=== PATIENT | male | born 1970 | race Caucasian/White ===

== ENCOUNTER 2024-11-24 01:17 | Day surgery (SDC) | payer OTHER, SELFPAY ==
[2024-11-10 15:41] VITALS: BMI 36.4
--- OUTSIDE RECORDS SUMMARY | 2024-11-24 01:20 | XMS_ITS | Referral Summary ---
Author Organization [facility] Address [address] [place] [address] Care Team Providers Care Computer Laboratory Technician Name Role Phone Rad Robles MD Primary Care Provider [phone] Encounters Date Type Department Care Team Description 11/20/2024 1:00 PM CENTRAL OFFICE MECHANIC Office Visit [facility] Neuro Sleep [address] [place] [address] 6th [address] [place] [address] Sergey Duffy PA CATHERINE (obstructive sleep apnea) (Primary Dx); Class 2 obesity due to excess calories with body mass index (BMI) of 36.0 to 36.9 in adult, unspecified whether serious comorbidity present 11/18/2024 4:30 PM CENTRAL OFFICE MECHANIC Telemedicine [facility] [address] [place] [address] [place] [address] Vaibhav Carlos MD Schizophrenia, unspecified type (HCC) (Primary Dx); Generalized anxiety disorder 10/24/2024 8:45 AM CENTRAL OFFICE MECHANIC Office Visit [facility] Cardiology [address] [facility] Medicine 8th [place] [address] [place] [address] Jojo Valverde MD PVC (premature ventricular contraction) (Primary Dx) from Last 3 Months Allergies No known active allergies Medications cholecalciferol (VITAMIN D-3) 5,000 unit tablet Take 1 tablet (5,000 Units total) by mouth daily Active multivitamin with minerals tablet Take 1 tablet by mouth daily Active EPINEPHrine 0.3 mg/0.3 mL auto-injection syringeIndicati ons:Anaphylaxis Inject 0.3 mL (0.3 mg total) into the muscle as instructed as needed for anaphylaxis Call 911 after use. 2 Syringe 9 Active hydrOXYzine (ATARAX) 25 mg tabletIndicatio ns:anxiety Take 1 tablet (25 mg total) by mouth every 8 (eight) hours as needed for anxiety 40 tablet 2 3 Active Additional Information Patient not taking.Reported on 11/20/2024 gemfibroziL (LOPID) 600 mg tablet TAKE 1 TABLET TWICE A DAY 180 tablet 3 4 Active OLANZapine (ZyPREXA) 10 mg tablet TAKE 1 TABLET NIGHTLY 30 tablet 11 4 Active metoprolol XL (TOPROL-XL) 25 mg extended release tablet TAKE 1 TABLET DAILY AT 10:00 A.M. 90 tablet 3 5 Active Active Problems Problem Noted Date Diagnosed Date PVC (premature ventricular contraction) 10/31/19 24 Generalized anxiety disorder 08/28/2023 CATHERINE (obstructive sleep apnea) 07/24/2023 Hyperlipidemia 12/05/2021 Assessment & Plan (12/05/2021 8:55 AM CENTRAL OFFICE MECHANIC): Reviewed, at goal on gemfibrozil Routine general medical exam ination at a health care facility 12/05/2021 Assessment & Plan (12/05/2021 9:04 AM CENTRAL OFFICE MECHANIC): Needs Shingrix and Tdap vaccines Labs Current on colonoscopy 2028 Goal of 150 min/weekly of moderate activity Tinea corporis 12/05/2021 Assessment & Plan (12/05/2021 9:15 AM CENTRAL OFFICE MECHANIC): Topical antifungal BID for 2-3 days beyond clearance, use blow dryer to dry area after bathing Hemorrhoids 08/12/2021 Assessment & Plan (08/12/2021 8:25 AM CDT): OTC tucks pads, will attempt to send Analpram HC Daily, soft BM's If not improving to call for repeat colonoscopy History of colon polyps 12/02/2020 Overview (12/02/2020): Follow up colonoscopy in 2023 Family history of prostate cancer 12/02/2020 Assessment & Plan (12/02/2020 8:58 AM CENTRAL OFFICE MECHANIC): Check psa Schizophrenia 07/12/2017 Immunizations Immunization Administration Dates Next Due Influenza, Quadrivalent, Alea l Culture-based MDCK, Preservative Free, Antibiotic Free, Intramuscular 07/13/2023 Influenza, Quadrivalent, Spl it, Preservative Free, Intramuscular 07/07/2022 Influenza, Trivalent, IM (MDV) 07/15/2021 Pfizer SARS-CoV-2 Monovalent Vaccination (12+ Yrs) PURPLE 07/07/2022,10/20/2020,09/29/2020 ZOSTER Recombinant 01/27/2023,08/11/2022 Social History Tobacco Use Types Packs/Day Years Used Date Smoking Tobacco: Former Cigarettes 1 15 1 986 - 2000 Smokeless Tobacco: Never Tobacco Cessation:Counseling Given: Not Answered PHQ-2 Answer Date Recorded PHQ-2 Total Score (If total score is 3 or more points, staff should administer the PHQ-9) 0 01/04/2024 Sex and Gender Information Value Date Recorded Sex Assigned at Not on file Legal Sex Male 1:48 AM CENTRAL OFFICE MECHANIC Gender Identity Male 12/02/2020 12:33 AM CENTRAL OFFICE MECHANIC Sexual Orientation Straight 12/02/2020 12 :33 AM CENTRAL OFFICE MECHANIC Last Filed Vital Signs Vital Sign Reading Time Taken Comments Blood Pressure 130/82 11/20/2024 12:41 PM CENTRAL OFFICE MECHANIC Pulse 47 11/20/2024 12:41 PM CENTRAL OFFICE MECHANIC Temperature 36.7 C (98 F) 11/20/2024 12:41 PM CENTRAL OFFICE MECHANIC Respiratory Rate 16 05/23/2019 8:38 AM CDT Oxygen Saturation 97% 11/20/2024 12:41 PM CENTRAL OFFICE MECHANIC Inhaled Oxygen Concentration - - Weight 113.2 kg (249 lb 8 oz) 11/20/2024 12:41 P M CENTRAL OFFICE MECHANIC Height 175.3 cm (5' 9 ) 11/20/2024 12:41 PM CENTRAL OFFICE MECHANIC Body Mass Index 36.84 11/20/2024 12:41 PM CENTRAL OFFICE MECHANIC Plan of Treatment Not on file Procedures Procedure Name Priority Date/Time Associated Diagnosis Comments ECG 12-LEAD Routine 10/24/2024 8:29 AM CENTRAL OFFICE MECHANIC PVC (premature ventricular contraction) PSA SCREEN Routine 01/04/2024 10:50 AM CDT Special screening for malignant neoplasm of prostate COLONOSCOPY Routine 12/02/2020 8:02 AM CENTRAL OFFICE MECHANIC from Last 3 Months or Most Recently Relevant to Health Maintenance Results * ECG 12 lead (10/24/2024 8:29 AM CENTRAL OFFICE MECHANIC) us Jojo Valverde MD ECG ORDERABLES Edited Result - Final * PSA screen (01/04/2024 10:50 AM CDT) [facility] PSA 0.6 0.0 - 4.0 ng/mL [facility] - Comment: Dorina ECLIA methodology. According to the [place] [employer], Serum PSA should decrease and remain at undetectable levels after radical prostatectomy. The AUA defines biochemical recurrence as an initial PSA value 0.2 ng/mL or greater followed by a subsequent confirmatory PSA value 0.2 ng/mL or greater. Values obtained with different assay methods or kits cannot be used interchangeably. Results cannot be interpreted as absolute evidence of the presence or absence of malignant disease. Blood 01/04/2024 10:5 0 AM CDT 01/04/2024 Narrative [facility] - 01/05/2024 3:35 AM CDT Performed at: [address] [id number] High Lighter: Konrad Cortes PhD, Phone: [phone] us Rad Robles MD LAB BLOOD ORDERABLES Final Re sult [facility] - 01 from Last 3 Months or Most Recently Relevant to Health Maintenance Insurance [facility] CHOICE PLUS CHOICE PLUS CHOICE PLUS [facility] EMPL[employer]EE HEALTH PLANS Address: [address] [place] [address] Care Teams Computer Laboratory Technician Relationship Specialty Start Date End Date Rad Robles MD [address] [place] [address] [address] [place] [address] PCP - General Internal Medicine 11/16/20
--- OUTSIDE RECORDS SUMMARY | 2024-11-24 01:20 | XMS_ITS | Clinical Summary ---
Author Organization [facility] Address [address] [place] [address] Care Team Providers Care Librarian Special Library Name Role Phone Rad Robles MD Primary Care Provider [phone] Allergies No known active allergies Medications cholecalciferol [...] Date Diagnosed Date PVC (premature ventricular contraction) 01/24/20 24 Generalized anxiety disorder 08/28/2023 CATHERINE (obstructive sleep apnea) 07/24/2023 Hyperlipidemia 12/05/2021 Assessment & Plan (12/05/2021 8:55 AM DIRECTOR DIGITAL SALES): Reviewed, at goal on gemfibrozil Routine general medical exam ination at a health care facility 12/05/2021 Assessment & Plan (12/05/2021 9:04 AM DIRECTOR DIGITAL SALES): Needs Shingrix and Tdap vaccines Labs Current on colonoscopy 2028 Goal of 150 min/weekly of moderate activity Tinea corporis 12/05/2021 Assessment & Plan (12/05/2021 9:15 AM DIRECTOR DIGITAL SALES): Topical antifungal BID for 2-3 days beyond [...] 12/02/2020 Assessment & Plan (12/02/2020 8:58 AM DIRECTOR DIGITAL SALES): Check psa Schizophrenia 07/12/2017 Encounters Date Type Department Care Team Description 11/20/2024 1:00 PM DIRECTOR DIGITAL SALES Office Visit [facility] Neuro Sleep [address] [facility] 6th Floor [address] [place] [address] Sergey Duffy PA CATHERINE (obstructive sleep apnea) (Primary Dx); Class 2 obesity due to excess calories with body mass index (BMI) of 36.0 to 36.9 in adult, unspecified whether serious comorbidity present 11/18/2024 4:30 PM DIRECTOR DIGITAL SALES Telemedicine [facility] [address] [facility] [address] [place] [address] Vaibhav Carlos MD Schizophrenia, unspecified type (HCC) (Primary Dx); Generalized anxiety disorder 10/24/2024 8:45 AM DIRECTOR DIGITAL SALES Office Visit [facility] Cardiology [address] [facility] 8th [place] [address] [place] [address] Jojo Valverde MD PVC (premature ventricular contraction) (Primary Dx) from Last 3 Months Immunizations Immunization Administration Dates Next Due Influenza, Quadrivalent, Alea l Culture-based MDCK, Preservative Free, Antibiotic Free, Intramuscular 07/13/2023 Influenza, Quadrivalent, Spl it, Preservative Free, Intramuscular 07/07/2022 Influenza, Trivalent, IM (MDV) 07/15/2021 Pfizer SARS-CoV-2 Monovalent Vaccination (12+ Yrs) PURPLE 07/07/2022,10/20/2020,09/29/2020 ZOSTER Recombinant 01/27/2023,08/11/2022 Surgical History Surgery Date Site/Laterality Comments FINGER SURGERY Medical History Medical History Date Comments Hyperlipidemia Schizophrenia (HCC) Obesity (BMI 35.0-39.9 without comorbidity) Premature ventricular contractions (PVCs) (VPCs) Family History Medical History Relation Name Comments Hyperlipidemia Father Family histor y of hyperlipidemia - (Added by TW Conv) Hypertension Father Family history of hypertension - (Added by TW Conv) Hypotension Mother Family history of hypotension - (Added by TW Conv) Relation Name Status Comments Father Alive Mother Alive Social History Tobacco Use Types Packs/Day Years [...] on file Legal Sex Male 1:48 AM DIRECTOR DIGITAL SALES Gender Identity Male 12/02/2020 12:33 AM DIRECTOR DIGITAL SALES Sexual Orientation Straight 12/02/2020 12 :33 AM DIRECTOR DIGITAL SALES Obstetrics History Last Filed Vital Signs Vital Sign Reading Time Taken Comments Blood Pressure 130/82 11/20/2024 12:41 PM DIRECTOR DIGITAL SALES Pulse 47 11/20/2024 12:41 PM DIRECTOR DIGITAL SALES Temperature 36.7 C (98 F) 11/20/2024 12:41 PM DIRECTOR DIGITAL SALES Respiratory Rate 16 05/23/2019 8:38 AM CDT Oxygen Saturation 97% 11/20/2024 12:41 PM DIRECTOR DIGITAL SALES Inhaled Oxygen Concentration - - Weight 113.2 kg (249 lb 8 oz) 11/20/2024 12:41 P M DIRECTOR DIGITAL SALES Height 175.3 cm (5' 9 ) 11/20/2024 12:41 PM DIRECTOR DIGITAL SALES Body Mass Index 36.84 11/20/2024 12:41 PM DIRECTOR DIGITAL SALES Plan of Treatment Health Maintenance Due Date Last Done Comments Hepatitis C Screening 1968 DTaP/Tdap/Td Vaccine (1 - Tdap) 1979 Hepatitis B Screening 1986 Covid-19 Vaccine ( season) 2024 07/13/2023, 07/07/2022, 07/07/2022, Additional history exists Influenza Vaccine (#1) 2024 , 07/07/2022, 07/15/2021 Depression Screening 01/03/2025 01/04/2024 Regular Well Visit/Exam 18-64 01/03/2025 01/04/2024, 12/11/2022, 12/05/2021, Additional history exists Prostate Cancer Screening-PSA 01/03/2026 01/04/2024, 12/11/2022, 12/05/2021, Additional history exists Colon Cancer Screening-Colonoscopy 05/08/2029 12/02/2020 Colon Cancer Screening-CT Colonography Discontinued 12/02/2020 Colon Cancer Screening-DNA Stool Discontinued 12/02/2020 Colon Cancer Screening-FIT Discontinued 12/02/2020 Colon Cancer Screening-Sigmoidoscopy Discontinued 12/02/2020 Zoster Vaccine Completed 01/27/2023, 08/11/2022 Pneumococcal vaccine <65 Aged Out No longer eligible based on patient's age to complete this topic Procedures Procedure Name Priority Date/Time Associated Diagnosis Comments ECG 12-LEAD Routine 10/24/2024 8:29 AM DIRECTOR DIGITAL SALES PVC (premature ventricular contraction) PSA SCREEN Routine 01/04/2024 10:50 AM CDT Special screening for malignant neoplasm of prostate COLONOSCOPY Routine 12/02/2020 8:02 AM DIRECTOR DIGITAL SALES from Last 3 Months or Most Recently Relevant to Health Maintenance Results * ECG 12 lead (10/24/2024 8:29 AM DIRECTOR DIGITAL SALES) us Jojo Valverde MD ECG ORDERABLES Edited Result - Final * PSA screen (01/04/2024 10:50 AM CDT) [facility] PSA 0.6 0.0 - 4.0 ng/mL [facility] - 01 Comment: Dorina ECLIA methodology. According to the [place] [employer], Serum PSA should decrease and [...] - 01/05/2024 3:35 AM CDT Performed at: - [facility] [id number] Newspaper Press Operator Apprentice: Konrad Cortes PhD, Phone: [phone] us Rad Robles MD LAB BLOOD ORDERABLES Final Re sult [facility] - 01 from Last 3 Months or Most Recently Relevant to Health Maintenance Insurance [facility] CHOICE PLUS [facility] HMO/PPO Address: [address] [place], [place] [id number] [facility] CHOICE PLUS [facility] H[facility]/PPO Address: [address] [address] [place] [address] [facility] CHOICE PLUS [facility] H[facility]/PPO Address: [address] [place], [place] [id number] [facility] EM[employer]EE HEALTH PLANS Address: [facility] [address] [place] [address] Care Teams Librarian Special Library Relationship Specialty Start Date End Date Rad Robles MD [address] [address] PCP - General Internal Medicine 11/16/20
--- OUTSIDE RECORDS SUMMARY | 2024-11-24 01:20 | XMS_ITS | Continuity of Care Document ---
Author Organization [facility] Address [address] [place] [address] Phone Care Team Providers Care Aircraft Electrical Systems Specialist Name Role Phone Vince Ramos MD Unavailable Unavailable Advance Directives Directive Yes / No Effective Date File Name No Information Encounters Encounter Description Practice Location Reason(s) For Visit Diagnoses Date Provider Providers Copied on Encounter [facility] [address], [place], [place], [address], tel:[phone] [facility] Care No Information [address], [place], [id number] , [place]. tel: [phone] [facility] [address], [place], [place], [address], [place] tel:[phone] [facility] Care HYPERLIPIDEMIA NEC/NOSDMI WO CMP UNCNTRLD [address], [place], [id number] , [place]. tel: [phone] [facility] [address], [place], [place], [address], [place] tel:[phone] [facility] Care VIRAL INFECTION NOS [address], [place], [id number] , [place]. tel: [phone] [facility] [address], [place], [place], [address], tel:[phone] [facility] Care CELLULITIS OF BUTTOCK [address], [place], [id number] , . tel: [phone] [facility], [address], [place], [place], [address], tel:[phone] Formerly Named [facility] NONSPECIF SKIN ERUPT NEC [address], [place], [id number] , . tel: [phone] [facility], [address], [place], [place], [address], tel:[phone] Formerly Named [facility] SCREEN-DIABETES MELLITUS [address], [place], [id number] , . tel: [phone] [facility], [address], [place], [place], [address], tel:[phone] Formerly Named [facility] ACUTE SINUSITIS NOSPARANOID SCHIZO-UNSPEC [address], [place], [id number] , [place]. tel: [phone] Family History Family Member Type Diagnosis Age At Onset No Information Payers Payer name Insurance type Covered green party ID Authoriza tion(s) No Information Social History Type Description Quantity Date Captured Comments Sex Male Smoking Status No Information Chief Complaint And Reason For Visit No Information Reason For Referral Reason For Referral No Information History Of Present Illness Encounter Date Complaint History Of Prese nt Illness No Information Functional Status Date Functional Assessmen t No Information Instructions Date Instruction Additional Infor mation No Information Assessments Type Assessment Date No Information Patient Care Teams Name Effective Dates (start - stop) Status Members No Information
[2024-11-24 07:00] VITALS: BP 123/79; PULSE 85; RESP 18; TEMP 35.7; BMI 35.9
[2024-11-24] MEDS: LACTATED RINGERS 1,000 ML 150 ML IV CONT (07:17)
--- NOTE | 2024-11-24 07:29 | WPDANESEPPF ---
Anes - Initial Pre Proc Eval Procedure: Operation Date: 11/24/24 08:00 Proposed Procedures p Screening Colonoscopy - Carlos Caraballo MD Date/Time: 11/24/24 07:29 Surgeon: Carlos Caraballo MD Pre Op Diagnosis: personal history colon polyps Patient Data Age: 54 Gender: M Height: 1.75 m Weight: 110.5 kg Last Vital Signs Temp 35.7 C L 11/24/24 07:00 Pulse 85 11/24/24 07:00 Resp 18 11/24/24 07:00 BP 123/79 11/24/24 07:00 Allergies Allergy/AdvReac Type Severity Reaction Status Date / Time No Known Allergies Allergy Verified 11/24/24 07:05 Home Medications ?Medication ?Instructions ?Recorded ?Confirmed ?Type ascorbic acid (vitamin C) 250 mg 250 mg PO DAILY 11/10/24 11/24/24 History tablet (Vitamin C) cholecalciferol (vitamin D3) 125 5,000 unit PO DAILY 11/10/24 11/24/24 History mcg (5,000 unit) capsule gemfibrozil 600 mg tablet 600 mg PO BID 11/10/24 11/24/24 History metoprolol succinate 25 mg 25 mg PO DAILY 11/10/24 11/24/24 History tablet,extended release 24 hr xzcdqvcp-vlb-ywcqk acid 0.4 1 tablet PO DAILY 11/10/24 11/24/24 History mg-lycopene 300 mcg-lutein 250 mcg tablet (Century Adults 50 Plus) olanzapine 10 mg tablet 10 mg PO DAILY 11/10/24 11/24/24 History Patient hx anesthesia problems: none Family hx anesthesia problems: none Results Review: All pre-operative results and documents have been reviewed as part of the pre-operative evaluation. [facility] Social History Social History Smoking packs per day: 1 Smoking cigarettes per day: 20.0 Years smoked: 15 Smoking pack-years: 15.00 Smoking status: Former smoker Tobacco type: cigarettes Alcohol intake: never Substance use: never Substance use type: does not use Living arrangements: with family Spiritual care concerns: No Anes - Eval Final PreProcedure Day of Procedure 11/24/24 07:29 Patient weight: obese Heart: regular rate and rhythm Lungs: clear to auscultation Airway: Mallampati scale class II Neurological: alert and oriented Last oral intake: >/= 8 hours (Last food intake at 0900 yesterday morning) ASA classification: III Emergent: no Anesthetic plan: proceed Anesthesia type and monitoring: general GIVS and standard monitoring Results Review: All pre-operative results and documents have been reviewed as part of the pre-operative evaluation. Patient compliant with CPAP every night. Former smoker, quit in 2000, used to smoke a pack a day for 15 years. 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 No recent chest pain or shortness of breath. Informed Consent: The patient's anesthetic plan and its attendant risks and benefits were discussed with the patient/family/POA. Questions were solicited and answers provided to the satisfaction of the patient/family/POA.
--- NOTE | 2024-11-24 07:56 | PM.IMHP ---
H&P: HPI History of Present Illness Date/Time: 11/24/24 07:56 Chief Complaint: History of colon polyps Narrative: The patient has a history of colonic polyps, the last colonoscopy was 6 years ago Review of Systems Review of Systems: All systems reviewed & are unremarkable except as noted in HPI and below [facility] Social History Social History Smoking packs per day: 1 Smoking cigarettes per day: 20.0 Years smoked: 15 Smoking pack-years: 15.00 Smoking status: Former smoker Tobacco type: cigarettes Alcohol intake: never Substance use: never Substance use type: does not use Living arrangements: with family Spiritual care concerns: No Meds Home Medications and Allergies Home Medications ?Medication ?Instructions ?Recorded ?Confirmed ?Type ascorbic acid (vitamin C) 250 mg 250 mg PO DAILY 11/10/24 11/24/24 History tablet (Vitamin C) cholecalciferol (vitamin D3) 125 5,000 unit PO DAILY 11/10/24 11/24/24 History mcg (5,000 unit) capsule gemfibrozil 600 mg tablet 600 mg PO BID 11/10/24 11/24/24 History metoprolol succinate 25 mg 25 mg PO DAILY 11/10/24 11/24/24 History tablet,extended release 24 hr falmtohn-bxv-kfbna acid 0.4 1 tablet PO DAILY 11/10/24 11/24/24 History mg-lycopene 300 mcg-lutein 250 mcg tablet (Century Adults 50 Plus) olanzapine 10 mg tablet 10 mg PO DAILY 11/10/24 11/24/24 History Allergies Allergy/AdvReac Type Severity Reaction Status Date / Time No Known Allergies Allergy Verified 11/24/24 07:05 Vital Signs Vital Signs - 24 hr 11/24/24 07:00 Temperature 96.3 F L Pulse Rate 85 Respiratory Rate 18 Blood Pressure 123/79 Exam Const: General: cooperative and healthy appearing Resp: Effort & Inspection: normal respiratory effort and able to speak in complete sentences Auscultation: clear to auscultation bilaterally Cardio: Rate: regular rate Rhythm: regular rhythm GI: Inspection: normal to inspection GI Palp: No No hepatosplenomegaly present Auscultation: normal bowel sounds Rectal Exam: deferred Skin: General skin exam: normal color Psych: Appearance: grossly normal Mental Status: mental status grossly normal Assessment and Plan Assessment and plan (1) History of colonic polyps: Code(s): Z86.0100 - Personal history of colon polyps, unspecified Status: Acute Assessment and Plan: The patient is deemed a good candidate for the procedure. Consent signed. Will proceed.
[2024-11-24 08:28] VITALS: BP 104/64; PULSE 45; RESP 18
[2024-11-24 08:38] VITALS: BP 109/65; PULSE 43; RESP 18
[2024-11-24 08:48] VITALS: BP 117/64; PULSE 45; RESP 18
== END 2024-11-24 09:07 | disposition home or self-care (01) ==
PROVIDERS: PCP Internal Medicine; Referring Provider Internal Medicine; Visit Provider Internal Medicine Gastroenterology
PROC: 0DJD8ZZ Inspection of Lower Intestinal Tract, Via Natural or Artificial Opening Endoscopic (ICD-10-PCS; CPT 45378; principal; 2024-11-24 08:00)
DX: Z12.11 Encounter for screening for malignant neoplasm of colon (principal); Z86.0100 Personal history of colon polyps, unspecified; Z87.891 Personal history of nicotine dependence
CPT/HCPCS: 45378; J1596; J2003; J2704; J7120